=== PATIENT | female | born 1950 | race Caucasian/White ===

== ENCOUNTER 2016-03-13 12:44 | Emergency (ER) | payer OTHER ==
[~2016-03-13] VITALS: Ht 167.6 cm; Wt 96.8 kg
[~2016-03-13 12:44] MED LIST: ACIPHEX20 MG PO; ASPIR-LOW81 MG GT; ATORVASTATIN CA40 MG GT; CLOPIDOGREL75 MG PO; CO Q-1010 MG PO; COLCRYS0.6 MG PO; COUMADIN1 MG PO; COUMADIN3 MG PO; CULTURELLE CAP1 EACH PO; DESITIN DIAPER113 GM TP; DILAUDID2 MG PO; DITROPAN5 MG PO; FISH OIL 1,0001 EAC7 PO; HUMALOG100 UNIT/1 SC; HUMULIN R500 UNITS/ SC; IMDUR30 MG PO; JANTOVEN3 MG PO; LEVEMIR100 UNIT/2 SC; LISINOPRIL5 MG GT; LISINOPRIL5 MG PO; LOPRESSOR25 MG PO; LOPRESSOR50 MG PO; LORAZEPAM1 MG GT; LORTAB 5-325 M1 EACH PO; LOVENOX100 MG/1 M SC; METOPROLOL TART25 MG PO; NITROSTAT0.4 MG SL; NOVOLIN,HU100 UNITS/ SC; NOVOLIN,HU100 UNITS1 SC; NOVOLOG PE100 UNITS/ SC; NOVOLOG100 UNIT/1 SC; Nucynta PO; Oyst-Cal D, Oscal W/ PO; PANTOPRAZOLE SO40 MG PO; PLAVIX75 MG PO; RESUME HOME MEDS; SIMVASTATIN40 MG PO; SYNTHROID200 MCG GT; TRANDOLAPRIL2 MG PO; VENLAFAXINE HCL75 M3 PO; VENLAFAXINE HCL75 MG PO; VENTOLIN HFA18 GM IH; VESICARE10 MG PO; VICODIN 5-3001 EACH PO; VICODIN HP 11 TABLET PO; VITAMIN D250000 UNIT PO; VYTORIN 10/41 TABLET PO; WARFARIN SODIUM4 MG GT; Zeasorb Antifungal T TP
[2016-03-13 14:09] LABS: HEMATOCRIT 44.5 % (36.0-46.0); MCH 29.8 PG (29.0-34.0); MCHC 33.7 G/DL (30.0-36.0); MCV 88.3 FL (83-99); MEAN PLAT.VOLUME 10.5 uM^3 (9.5-12.4); PLATELET COUNT 259 K/uL (156-360); RBC DIS.WIDTH-CV 15.9 % (11.8-14.6); RBC DIS.WIDTH-SD 51.2 % (39-53); RED BLOOD COUNT 5.04 M/uL (3.80-5.20); WHITE BLOOD COUNT 7.2 K/uL (4.1-10.2)
[2016-03-13 14:13] LABS: ADD MIUA? YES; BILIRUBIN NEGATIVE; BLOOD NEGATIVE; COLOR YELLOW ((YELLOW)); GLUCOSE (STRIP) 500; KETONES NEGATIVE; LEUKOCYTES SMALL; NITRITE NEGATIVE; PH, URINE 5.5 (5-8); PROTEIN (STRIP) NEGATIVE; SPECIFIC GRAVITY 1.017 (1.000-1.030); UROBILINOGEN 0.2 MG/DL (0.2-1.0)
[2016-03-13 14:30] LABS: EPITHELIAL CELLS 1+; RED BLOOD CELLS NONE SEEN /HPF (0-5)
[2016-03-13 14:31] LABS: BACTERIA 2+; CASTS NONE SEEN /LPF; CRYSTALS NONE SEEN; MUCUS NONE SEEN; UCUL ADDED? YES
[2016-03-13 15:06] LABS: CHLORIDE 105 mEq/L (99-109); POTASSIUM 4.4 mEq/L (3.7-5.4); SODIUM 137 mEq/L (136-147)
[2016-03-13 15:07] LABS: D-DIMER ELISA 0.42 mg/L FEU (< 0.57)
[2016-03-13 15:08] LABS: GLUCOSE 167 mg/dL (70-99)
[2016-03-13 15:09] LABS: ANION GAP 8 MEQ/L (2-14)
[2016-03-13 15:10] LABS: TOTAL BILIRUBIN 0.2 mg/dL (0.0-1.0)
[2016-03-13 15:11] LABS: ALKALINE PHOSPHATASE 94 IU/L (3-129)
[2016-03-13 15:12] LABS: GFR ESTIMATE (CALCULATED) > 59 mL/min/
[2016-03-13 15:13] LABS: UREA NITROGEN (BUN) 23 mg/dL (9-23)
[2016-03-13 15:15] LABS: LIPASE 39 U/L (1.0-51.0)
[2016-03-13] MEDS ORDERED: TRAMADOL HCL50 MG PO (17:56)
[2016-03-13 18:32] VITALS: BP 187/80
== END 2016-03-13 18:32 | disposition home or self-care (01) ==
LOC: EME 12:44
PROVIDERS: Emergency Medicine
DX: R07.89 Other chest pain (principal); I25.2 Old myocardial infarction; I10 Essential (primary) hypertension; E78.5 Hyperlipidemia, unspecified; F17.200 Nicotine dependence, unspecified, uncomplicated; E11.9 Type 2 diabetes mellitus without complications; Z86.73 Personal history of transient ischemic attack (TIA), and cerebral infarction without residual deficits
CPT/HCPCS: 71010; 80053; 81003; 83690; 85027; 85379; 87077; 87086; 87186; 99281; 99284; J1885; J7030

== ENCOUNTER 2016-12-01 23:05 | Observation (INO) | payer OTHER ==
[~2016-12-01] VITALS: Ht 167.6 cm; Wt 117.6 kg
[~2016-12-01 23:05] MED LIST changes: -ASPIR-LOW81 MG GT; +ASPIR-LOW81 MG PO; +LISINOPRIL10 MG PO; -LISINOPRIL5 MG GT; -METOPROLOL TART25 MG PO; -SYNTHROID200 MCG GT; +SYNTHROID200 MCG PO; +TRAMADOL HCL50 MG PO
[2016-12-01 23:21] LABS: POINT-OF-CARE METER ID UU13113778
[2016-12-01 23:47] LABS: EOSINOPHIL (%) 1.6 % (0-5); EOSINOPHIL COUNT 0.1 K/uL (0-0.3); HEMATOCRIT 46.6 % (36.0-46.0); IMMATURE GRANULOCYTE (%) 0.2 % (0.0-0.7); INSTRUMENT ABS NEUTROPHIL CT 5.7 K/uL; LYMPHOCYTE COUNT 2.1 K/uL (1.0-2.8); MCH 30.2 PG (29.0-34.0); MCHC 33.3 G/DL (30.0-36.0); MCV 90.8 FL (83-99); MEAN PLAT.VOLUME 10.2 uM^3 (9.5-12.4); MONOCYTE (%) 6.6 % (3-12); MONOCYTE COUNT 0.6 K/uL (0-0.8); NEUTROPHIL (%) 67.2 % (45-76); NEUTROPHIL COUNT 5.7 K/uL (1.8-6.4); PLATELET COUNT 229 K/uL (156-360); RBC DIS.WIDTH-CV 14.6 % (11.8-14.6); RBC DIS.WIDTH-SD 49.6 % (39-53); RED BLOOD COUNT 5.13 M/uL (3.80-5.20); WHITE BLOOD COUNT 8.5 K/uL (4.1-10.2)
[2016-12-01 23:57] LABS: CHLORIDE 104 mEq/L (99-109); POTASSIUM 4.1 mEq/L (3.7-5.4); SODIUM 139 mEq/L (136-147)
[2016-12-01 23:59] LABS: GLUCOSE 317 mg/dL (70-99)
[2016-12-02] LABS: ANION GAP 9 MEQ/L (2-14)
[2016-12-02 00:01] LABS: TOTAL BILIRUBIN 0.2 mg/dL (0.0-1.0)
[2016-12-02 00:03] LABS: ALKALINE PHOSPHATASE 85 IU/L (3-129); GFR ESTIMATE (CALCULATED) > 59 mL/min/
[2016-12-02 00:04] LABS: UREA NITROGEN (BUN) 24 mg/dL (9-23)
[2016-12-02 00:07] LABS: TROP-I INTERPRETATION NEGATIVE; TROPONIN-I < 0.01 ng/mL (0.0-0.30)
[2016-12-02] MEDS ORDERED: COUMADIN3 MG PO (00:14)
[2016-12-02] MEDS ORDERED: WARFARIN SODIUM4 MG PO (00:14)
[2016-12-02] MEDS ORDERED: EFFEXOR XR75 MG PO (00:19)
[2016-12-02] MEDS ORDERED: ERGOCALCIF50000 UNIT PO (00:19)
[2016-12-02] MEDS ORDERED: CULTURELLE CAP1 EACH PO (00:19)
[2016-12-02] MEDS ORDERED: RED YEAST RICE600 MG PO (00:19)
[2016-12-02] MEDS ORDERED: CO Q-10200 MG PO (00:19)
[2016-12-02] MEDS ORDERED: MAGNESIUM400 M1 PO (00:20)
[2016-12-02] MEDS ORDERED: HUMULIN 70100 UNIT/2 SC (00:23)
[2016-12-02 01:07] LABS: ADD MIUA? YES; BILIRUBIN NEGATIVE; BLOOD NEGATIVE; COLOR YELLOW ((YELLOW)); GLUCOSE (STRIP) >=500; KETONES NEGATIVE; LEUKOCYTES TRACE; NITRITE NEGATIVE; PROTEIN (STRIP) NEGATIVE; SPECIFIC GRAVITY 1.027 (1.000-1.030); UROBILINOGEN 0.2 MG/DL (0.2-1.0)
[2016-12-02 01:21] LABS: INTER. NORMALIZED RATIO 2.2
[2016-12-02 01:36] LABS: BACTERIA 1+ /HPF; EPITHELIAL CELLS RARE /HPF; MUCUS TRACE /LPF; RED BLOOD CELLS 0-5 /HPF (0-5); UCUL ADDED? YES; WHITE BLOOD CELLS 15-20 /HPF (0-5)
[2016-12-02 03:35] LABS: HDL CHOLESTEROL 36 MG/DL (Desirable>=50); LDL CHOLESTEROL 91 mg/dL (Desirable<100); NON-HDL CHOLESTEROL 137 mg/dL (Desirable<160); SAMPLE HEMOLYSIS CHECK 0; SAMPLE ICTERIC CHECK 0; SAMPLE LIPEMIA CHECK 0; TOTAL CHOLESTEROL 173 mg/dL (Desirable<200); TRIGLYCERIDES 232 MG/DL (Normal: <150)
[2016-12-02 07:33] LABS: Estimated Average Glucose 212 mg/dL (70-123)
[2016-12-02 07:57] VITALS: BP 138/75
[2016-12-02 08:45] LABS: POINT-OF-CARE METER ID UU14162513
[2016-12-02 11:21] LABS: HEMATOCRIT 46.1 % (36.0-46.0); MCH 29.9 PG (29.0-34.0); MCHC 32.3 G/DL (30.0-36.0); MCV 92.6 FL (83-99); MEAN PLAT.VOLUME 9.4 uM^3 (9.5-12.4); PLATELET COUNT 207 K/uL (156-360); RBC DIS.WIDTH-CV 14.7 % (11.8-14.6); RBC DIS.WIDTH-SD 50.3 % (39-53); RED BLOOD COUNT 4.98 M/uL (3.80-5.20); WHITE BLOOD COUNT 7.9 K/uL (4.1-10.2)
[2016-12-02 11:34] LABS: INTER. NORMALIZED RATIO 2.3; PROTHROMBIN TIME 26.3 SEC (10.2-12.9)
[2016-12-02 11:48] LABS: ALKALINE PHOSPHATASE 81 IU/L (3-129); ANION GAP 6 MEQ/L (2-14); CHLORIDE 103 MEQ/L (99-109); GFR ESTIMATE (CALCULATED) > 59 mL/min/; GLUCOSE 264 mg/dL (70-99); POTASSIUM 4.2 MEQ/L (3.7-5.4); SAMPLE HEMOLYSIS CHECK 0; SAMPLE ICTERIC CHECK 0; SAMPLE LIPEMIA CHECK 0; SODIUM 138 MEQ/L (136-147); TOTAL BILIRUBIN 0.4 MG/DL (0.0-1.0); UREA NITROGEN (BUN) 19 mg/dL (9-23)
[2016-12-02 12:37] VITALS: BP 162/95
[2016-12-02 13:19] LABS: POINT-OF-CARE METER ID UU13113700
[2016-12-02 16:00] VITALS: BP 165/83
[2016-12-02 17:38] LABS: POINT-OF-CARE METER ID UU13113700
[2016-12-02 22:00] LABS: POINT-OF-CARE METER ID UU13113700
[2016-12-02 23:50] VITALS: BP 134/64
[2016-12-03 00:04] LABS: POINT-OF-CARE METER ID UU14162513
[2016-12-03 02:44] LABS: POINT-OF-CARE METER ID UU14162513
[2016-12-03 04:30] VITALS: BP 133/76
[2016-12-03 04:42] LABS: POINT-OF-CARE METER ID UU13113831
[2016-12-03 05:52] LABS: INTER. NORMALIZED RATIO 2.5; PROTHROMBIN TIME 28.7 SEC (10.2-12.9)
[2016-12-03 08:20] VITALS: BP 183/87
[2016-12-03 08:56] LABS: POINT-OF-CARE METER ID UU13113831
== END 2016-12-03 11:07 | disposition home or self-care (01) ==
LOC: EME 23:05 → EDOF 12-02 01:26 → 5WEST 12-02 01:26 → ENRESERV 12-02 01:29 → 5WEST 12-02 04:32 → ENPENDDIS 12-03 → 5WEST 12-03 11:07
PROVIDERS: Emergency Medicine; Internal Medicine
DX: G45.9 Transient cerebral ischemic attack, unspecified (principal); I65.21 Occlusion and stenosis of right carotid artery; I69.320 Aphasia following cerebral infarction; I25.10 Atherosclerotic heart disease of native coronary artery without angina pectoris; Z95.1 Presence of aortocoronary bypass graft; Z95.5 Presence of coronary angioplasty implant and graft; I10 Essential (primary) hypertension; E78.5 Hyperlipidemia, unspecified; K21.9 Gastro-esophageal reflux disease without esophagitis; M19.90 Unspecified osteoarthritis, unspecified site; G47.33 Obstructive sleep apnea (adult) (pediatric); E11.9 Type 2 diabetes mellitus without complications; T81.89XA Other complications of procedures, not elsewhere classified, initial encounter; Z91.19 Patient's noncompliance with other medical treatment and regimen; Z79.01 Long term (current) use of anticoagulants; Z98.890 Other specified postprocedural states; Z87.891 Personal history of nicotine dependence; J44.9 Chronic obstructive pulmonary disease, unspecified; E78.00 Pure hypercholesterolemia, unspecified; E03.9 Hypothyroidism, unspecified; Z85.850 Personal history of malignant neoplasm of thyroid; E66.3 Overweight; Z68.41 Body mass index [BMI] 40.0-44.9, adult; Z79.82 Long term (current) use of aspirin; Z79.4 Long term (current) use of insulin; Z90.49 Acquired absence of other specified parts of digestive tract; Z90.710 Acquired absence of both cervix and uterus; Z82.49 Family history of ischemic heart disease and other diseases of the circulatory system; Z83.79 Family history of other diseases of the digestive system; Z88.5 Allergy status to narcotic agent; Z88.8 Allergy status to other drugs, medicaments and biological substances
CPT/HCPCS: 70450; 71020; 80053; 80061; 81003; 82948; 83036; 84484; 85025; 85027; 85610; 87077; 87086; 87186; 93005; 93880; 99202; 99281; 99285; G0378; J1815

== ENCOUNTER 2017-09-09 01:45 | Emergency (ER) | payer OTHER ==
[~2017-09-09] VITALS: Ht 162.6 cm; Wt 115.4 kg
[~2017-09-09 01:45] MED LIST changes: +CO Q-10200 MG PO; +EFFEXOR XR75 MG PO; +ERGOCALCIF50000 UNIT PO; +HUMULIN 70100 UNIT/2 SC; +MAGNESIUM400 M1 PO; +RED YEAST RICE600 MG PO; +WARFARIN SODIUM4 MG PO
[2017-09-09 02:22] LABS: HEMATOCRIT 50.9 % (36.0-46.0); HEMOGLOBIN 17.5 G/DL (11.9-15.5); MCH 30.9 PG (29.0-34.0); MCHC 34.4 G/DL (30.0-36.0); MCV 89.9 FL (83-99); PLATELET COUNT 167 K/uL (156-360); RBC DIS.WIDTH-CV 14.9 % (11.8-14.6); RED BLOOD COUNT 5.66 M/uL (3.80-5.20); WHITE BLOOD COUNT 10.2 K/uL (4.1-10.2)
[2017-09-09 02:36] LABS: ALBUMIN 3.9 g/dL (3.2-4.8); CHLORIDE 99 mEq/L (99-109); POTASSIUM 3.4 mEq/L (3.7-5.4); SODIUM 142 mEq/L (136-147)
[2017-09-09 02:38] LABS: GLUCOSE 109 mg/dL (70-99); TOTAL PROTEIN 7.1 g/dL (6.4-8.3)
[2017-09-09 02:40] LABS: TOTAL BILIRUBIN 0.4 mg/dL (0.0-1.0)
[2017-09-09 02:42] LABS: ALKALINE PHOSPHATASE 106 IU/L (3-129); CREATININE 1.1 mg/dL (0.6-1.3); GFR ESTIMATE (CALCULATED) 52 mL/min/
[2017-09-09 02:43] LABS: AST (GOT) 17 IU/L (2-34); UREA NITROGEN (BUN) 23 mg/dL (9-23)
[2017-09-09 02:45] LABS: ALT (GPT) 14 IU/L (3-49); LIPASE 42 U/L (1.0-51.0)
[2017-09-09 03:28] LABS: TROP-I INTERPRETATION NEGATIVE; TROPONIN-I 0.03 ng/mL (0.0-0.30)
[2017-09-09 04:42] LABS: APPEARANCE CLEAR ((CLEAR)); BILIRUBIN NEGATIVE; BLOOD NEGATIVE; COLOR STRAW ((YELLOW)); GLUCOSE (STRIP) NEGATIVE; KETONES NEGATIVE; LEUKOCYTES NEGATIVE; NITRITE NEGATIVE; PROTEIN (STRIP) NEGATIVE; SPECIFIC GRAVITY 1.008 (1.000-1.030); UCUL ADDED? NO; UROBILINOGEN 0.2 MG/DL (0.2-1.0)
[2017-09-09] MEDS ORDERED: PEPCID20 MG PO (05:16)
[2017-09-09] MEDS ORDERED: ZOFRAN4 MG PO (05:16)
[2017-09-09 05:52] VITALS: BP 180/102
== END 2017-09-09 05:54 | disposition home or self-care (01) ==
LOC: EME 01:45
DX: R10.11 Right upper quadrant pain (principal); R05 Cough; I71.4 Abdominal aortic aneurysm, without rupture; I70.0 Atherosclerosis of aorta; I44.0 Atrioventricular block, first degree; I25.10 Atherosclerotic heart disease of native coronary artery without angina pectoris; N28.1 Cyst of kidney, acquired; K57.30 Diverticulosis of large intestine without perforation or abscess without bleeding; Z90.49 Acquired absence of other specified parts of digestive tract; Z90.710 Acquired absence of both cervix and uterus; F17.200 Nicotine dependence, unspecified, uncomplicated; I10 Essential (primary) hypertension; I25.2 Old myocardial infarction; J44.9 Chronic obstructive pulmonary disease, unspecified; E11.9 Type 2 diabetes mellitus without complications; Z79.4 Long term (current) use of insulin; Z95.1 Presence of aortocoronary bypass graft; Z95.5 Presence of coronary angioplasty implant and graft; Z79.82 Long term (current) use of aspirin; Z79.01 Long term (current) use of anticoagulants; Z86.73 Personal history of transient ischemic attack (TIA), and cerebral infarction without residual deficits; Z85.850 Personal history of malignant neoplasm of thyroid
CPT/HCPCS: 74177; 80053; 81003; 83690; 84484; 85027; 93005; 99281; 99285; J7030

== ENCOUNTER 2017-09-10 15:24 | Emergency (ER) | payer OTHER ==
[~2017-09-10] VITALS: Ht 167.6 cm; Wt 114.7 kg
[~2017-09-10 15:24] MED LIST changes: +PEPCID20 MG PO; +ZOFRAN4 MG PO
[2017-09-10 16:11] LABS: HEMATOCRIT 51.8 % (36.0-46.0); MCH 30.9 PG (29.0-34.0); MCHC 34.7 G/DL (30.0-36.0); PLATELET COUNT 193 K/uL (156-360); RBC DIS.WIDTH-CV 14.9 % (11.8-14.6); RBC DIS.WIDTH-SD 48.4 % (39-53); RED BLOOD COUNT 5.82 M/uL (3.80-5.20); WHITE BLOOD COUNT 8.2 K/uL (4.1-10.2)
[2017-09-10 16:24] LABS: ALBUMIN 4.2 g/dL (3.2-4.8); CHLORIDE 102 mEq/L (99-109); POTASSIUM 3.5 mEq/L (3.7-5.4); SODIUM 140 mEq/L (136-147)
[2017-09-10 16:26] LABS: GLUCOSE 148 mg/dL (70-99)
[2017-09-10 16:30] LABS: ALKALINE PHOSPHATASE 113 IU/L (3-129); CREATININE 1.2 mg/dL (0.6-1.3); GFR ESTIMATE (CALCULATED) 47 mL/min/
[2017-09-10 16:31] LABS: UREA NITROGEN (BUN) 20 mg/dL (9-23)
[2017-09-10 16:32] LABS: AST (GOT) 21 IU/L (2-34)
[2017-09-10 16:33] LABS: ALT (GPT) 17 IU/L (3-49); TOTAL BILIRUBIN 0.5 mg/dL (0.0-1.0)
[2017-09-10 18:45] LABS: APPEARANCE CLEAR ((CLEAR)); BILIRUBIN NEGATIVE; BLOOD NEGATIVE; COLOR STRAW ((YELLOW)); GLUCOSE (STRIP) NEGATIVE; KETONES 5; LEUKOCYTES NEGATIVE; NITRITE NEGATIVE; PROTEIN (STRIP) 30; SPECIFIC GRAVITY 1.009 (1.000-1.030); UCUL ADDED? NO; UROBILINOGEN 0.2 MG/DL (0.2-1.0)
[2017-09-10 19:45] LABS: LIPASE 40 U/L (1.0-51.0)
[2017-09-10 22:12] VITALS: BP 168/93
== END 2017-09-10 22:17 | disposition home or self-care (01) ==
LOC: EME 15:24
DX: R10.9 Unspecified abdominal pain (principal); I10 Essential (primary) hypertension; I71.4 Abdominal aortic aneurysm, without rupture; E11.9 Type 2 diabetes mellitus without complications; K21.9 Gastro-esophageal reflux disease without esophagitis; J44.9 Chronic obstructive pulmonary disease, unspecified; I25.2 Old myocardial infarction; F32.9 Major depressive disorder, single episode, unspecified; F41.9 Anxiety disorder, unspecified; F17.200 Nicotine dependence, unspecified, uncomplicated; Z86.73 Personal history of transient ischemic attack (TIA), and cerebral infarction without residual deficits; Z85.850 Personal history of malignant neoplasm of thyroid; Z90.49 Acquired absence of other specified parts of digestive tract; Z95.1 Presence of aortocoronary bypass graft; Z95.5 Presence of coronary angioplasty implant and graft; Z79.01 Long term (current) use of anticoagulants; Z79.82 Long term (current) use of aspirin; Z88.5 Allergy status to narcotic agent; Z88.6 Allergy status to analgesic agent; Z88.8 Allergy status to other drugs, medicaments and biological substances
CPT/HCPCS: 71046; 74177; 80053; 81003; 83690; 85027; 93005; 99281; 99285; J3010; J7030